=== PATIENT | male | born 1970 ===

== ENCOUNTER 2020-02-28 07:22 | Day surgery (SDC) | payer BC ==
[~2020-02-28] VITALS: Ht 180.3 cm; Wt 161.5 kg
[~2020-02-28 07:22] MED LIST: ATOR20 PO; HYDCHL25 PO; IBUP200 PO; Prinivil10 MG PO; Vitamin D2000 UNIT PO
[2020-02-28] MEDS ORDERED: MULVITA PO (07:57)
--- NOTE | 2020-02-28 08:03 | NUR ---
PT AMBULATED INDPENDENTLY WITH STEADY GAIT FROM WAITIGN ROOM TO BAY 1. PT IS ALERT AND ORIENTED WITH CLEAR LUNGS. PT PLACED IN GOWN, VSS, IV COMPLETED. PAPERWORK AND BLOOD CONSETN COMPLETED.
--- NOTE | 2020-02-28 08:44 | NUR ---
02/28/20 08[address] TO DR VOSS PAPER NOTES FOR SEDATION RECORD.
== END 2020-02-28 22:51 | disposition home or self-care (01) ==
LOC: ORSCMMR 07:22 → ORD 08:30 → ORSCMMR 08:30
PROVIDERS: Internal Medicine Gastroenterology
PROC: 0DB68ZX Excision of Stomach, Via Natural or Artificial Opening Endoscopic, Diagnostic (ICD-10-PCS; principal; 2020-02-28 08:30)
DX: R10.11 Right upper quadrant pain (principal); K25.9 Gastric ulcer, unspecified as acute or chronic, without hemorrhage or perforation; K44.9 Diaphragmatic hernia without obstruction or gangrene; K20.90 Esophagitis, unspecified without bleeding; Z01.818 Encounter for other preprocedural examination; R10.13 Epigastric pain; I10 Essential (primary) hypertension; E78.5 Hyperlipidemia, unspecified; E66.01 Morbid (severe) obesity due to excess calories; Z68.42 Body mass index [BMI] 45.0-49.9, adult; F17.220 Nicotine dependence, chewing tobacco, uncomplicated; Z79.899 Other long term (current) drug therapy
CPT/HCPCS: 88305; 88312; J2704; J7120

== ENCOUNTER 2020-05-03 02:53 | Emergency (ER) | payer BC ==
[~2020-05-03] VITALS: Ht 180.3 cm; Wt 143.0 kg
[~2020-05-03 02:53] MED LIST changes: +MULVITA PO
[2020-05-03] MEDS ORDERED: [UNRECOGNIZED DRUG - OTHER] PO (03:12)
[2020-05-03 05:40] LABS: BASOPHILS ABSOLUTE AUTO 0.06 K/mm3 (0.00-0.23); BASOPHILS PERCENT AUTO 1 % (0-2); EOSINOPHILS ABSOLUTE AUTO 0.15 K/mm3 (0.00-0.68); EOSINOPHILS PERCENT AUTO 1 % (0-6); Hematocrit 38.8 % (37.0-53.0); Hemoglobin 12.3 g/dL (13.5-17.5); IMMATURE GRAN ABSOLUTE AUTO 0.02 K/mm3 (0.00-0.10); IMMATURE GRAN PERCENT AUTO 0 % (0-1); LYMPHOCYTES ABSOLUTE AUTO 2.61 K/mm3 (0.84-5.20); LYMPHOCYTES PERCENT AUTO 25 % (21-46); MONOCYTES ABSOLUTE AUTO 1.05 K/mm3 (0.16-1.47); MONOCYTES PERCENT AUTO 10 % (4-13); Mean Corpuscular HGB 28.7 pg (26.0-34.0); Mean Corpuscular HGB Conc 31.7 g/dL (31.5-36.5); Mean Corpuscular Volume 91 fL (80-100); Mean Platelet Volume 9.6 fL (9.1-12.4); NEUTROPHILS ABSOLUTE AUTO 6.54 K/mm3 (1.96-9.15); NEUTROPHILS PERCENT AUTO 63 % (41-73); Platelet Count 409 K/mm3 (150-400); RDW Coefficient Variation 13.4 % (11.7-14.2); RDW Standard Deviation 44.6 fL (35.1-46.3); Red Blood Cell Count 4.28 M/mm3 (4.30-5.90); White Blood Cell Count 10.43 K/mm3 (4.00-11.30)
[2020-05-03 05:54] LABS: International Normalized Ratio 1.15; Prothrombin Time Results 12.2 Sec (9.7-11.5)
[2020-05-03] MEDS ORDERED: XARELTO15 MG PO (08:41)
== END 2020-05-03 08:50 | disposition home or self-care (01) ==
LOC: ER 02:53
PROVIDERS: Emergency Medicine
DX: M79.604 Pain in right leg (principal); Z79.899 Other long term (current) drug therapy
CPT/HCPCS: 36415; 71260; 74176; 84484; 85025; 85610; 93005; 93010; 93971; 96365-59; 96375-59; 99284-25; A9270; J1644; Q9967